=== PATIENT | female | born 1955 | race African-American/Black ===

== ENCOUNTER 2017-02-23 12:46 | Emergency (ER) | payer MEDICARE ==
[~2017-02-23] VITALS: Ht 170.2 cm; Wt 72.6 kg
[~2017-02-23 12:46] MED LIST: CYCLOBENZAPRINE10 MG ORAL; DIAMOX250 MG ORAL; IBUPROFEN600 MG ORAL; KEFLEX500 MG ORAL; NORCO 5-325 TA1 EAC1 ORAL; PROZAC40 MG PO; VALIUM5 MG PO; VICODIN 5-5001 EACH PO
--- NOTE | 2017-02-23 13:03 | Emergency Room Report ---
History of Present Illness General Chief Complaint: Upper Extremity Injury Source: Patient Present Illness HPI Patient presents with injury to her left thumb Reports that just prior to arrival about 15 minutes ago had a fall onto the left hand And bilateral knee Pain to the left thumb is 6/10 worse with movement Mainly localized to the base patient otherwise was ambulatory has some minimal pain to both knee Denies any chest pressures of breath describes the fall as a mechanical fall in the bathroom Allergies: Coded Allergies: PROPOXYPHENE (Unverified Allergy, Unknown, 01/11/14) Patient History Past Medical History: see triage record Pertinent Family History: none Reviewed Nursing Documentation: PMH: Agreed, PSxH: Agreed Nursing Documentation-PMH Past Medical History: No History, Except For Hx Cardiac Problems: No - Glaucoma, Brain Tumor , Migraines, Borderline Diabetes Hx Neurological Problems: Yes - migranes, brain tumor Hx Cerebrovascular Accident: Yes - after a brain surgery Review of Systems All Other Systems: negative except mentioned in HPI Physical Exam Vital Signs Date Time Temp Pulse Resp B/P (MAP) Pulse Ox O2 Delivery O2 Flow Rate FiO2 02/23/17 12:53 98.2 70 16 158/93 97 Room Air Sp02 EP Interpretation: reviewed, normal General Appearance: well appearing, no apparent distress Head: normocephalic, atraumatic Eyes: bilateral eye PERRL, bilateral eye EOMI ENT: normal pharynx Neck: full range of motion, supple Respiratory: lungs clear Cardiovascular #1: regular rate, rhythm Musculoskeletal: other - Some swelling is noted to the base of the left thumb, able to flex distally however, able to approximate digits mild abrasion was also noted, small abrasion over the left knee as well otherwise good range of motion Neurologic: alert, oriented x3, responsive Skin: abrasions - as noted above Lymphatic: no adenopathy Procedures Splinting Splinting : Consent: Verbal Location: left hand Pre-Made Type: velcro Splint: thumb spica Pre-Proc Neuro Vasc Exam: normal Post-Proc Neuro Vasc Exam: normal Patient Tolerated: Well Complications: None Joint Reduction Joint Reduction : Consent: Verbal Joint Reduction Site: other - left hand Procedural Sedation: No - Patient had digital block performed with injection of 3 mL 1% lidocaine and the piece of the thumb Reduction Attempts: One Pre-Procedure NV Exam: Yes Post-Procedure NV Exam: Yes Post Joint Reduction Film: joint not reduced Patient Tolerated: Well Complications: None Progress After local sedation, evaluation of the thumb reveals appropriate joint movement , consider dislocation versus chronic appearance Medical Decision Making Diagnostic Impression: Primary Impression: Thumb fracture Additional Impression: Abrasion ER Course Patient's x-ray imaging show some limitation on evaluation there is a concern for possible dislocation versus also possible fracture at the base of the thumb The clinical exam appear somewhat abnormal which raises the question of possible dislocation Refer to the note for the specifics however after local sedation I was able to have appropriate mobility at the base of the thumb, which decreased my concern of possible dislocation Nevertheless patient was splinted in her course close orthopedic followup Please note that time of disposition patient also reports that she did hit the back of her head However has benign neurological exam and further imaging was not obtained Other X-Ray Diagnostic Results Other X-Ray Diagnostic Results : X-Ray ordered: left hand # of Views/Limited Vs Complete: 3 View Indication: Pain EP Interpretation: Yes Interpretation: other - Base of thumb possible fracture, there is some mild alignment raising concern of possible dislocation with associated mild soft tissue swelling Impression: Other - questionable fracture dislocation base of thumb Electronically Signed by: Mar Lopes DO Last Vital Signs Date Time Temp Pulse Resp B/P (MAP) Pulse Ox O2 Delivery O2 Flow Rate FiO2 02/23/17 12:53 98.2 70 16 158/93 97 Room Air Status: improved Disposition: HOME, SELF-CARE Condition: Improved Additional Instructions: Patient is provided with the discharge instructions notified to follow up with primary doctor in the next 2-3 days otherwise return to the er with any worsening symptoms. Please note that this report is being documented using Expert technology. This can lead to erroneous entry secondary to incorrect interpretation by the dictating instrument. MAR LOPES D.O. Feb 23, 2017 13:03
[2017-02-23] MEDS ORDERED: Norco 5mg/325mg tab ORAL ONE (14:00)
[2017-02-23] MEDS ORDERED: ACETAMINOPHEN-1 EAC1 ORAL (14:09)
[2017-02-23 14:11] VITALS: BP 158/93
--- NOTE | 2017-02-24 12:02 | Diagnostic Imaging Report ---
Indication: pain Findings: 3 views of the left hand were obtained. Normal alignment is demonstrated. No acute fractures, erosions, or periosteal reaction are seen. Soft tissues are unremarkable. Impression: No acute findings.
== END 2017-02-23 14:35 | disposition home or self-care (01) ==
LOC: EMR 14:26
DX: S62.502A Fracture of unspecified phalanx of left thumb, initial encounter for closed fracture (principal); S80.212A Abrasion, left knee, initial encounter; W19.XXXA Unspecified fall, initial encounter; Y92.89 Other specified places as the place of occurrence of the external cause
CPT/HCPCS: 29125; 99283